=== PATIENT | female | born 1995 | race Hispanic/Latino ===

== ENCOUNTER 2018-10-25 10:34 | Emergency (ER) | payer SELFPAY ==
--- NOTE | 2018-10-25 11:42 | EDPHYS ---
Physician Documentation [facility] Name: Luisana Shoemaker Age: 23 yrs Sex: Female : 1995 Arrival Date: 10/25/2018 Time: 10:38 Bed 8 Private MD: ED Physician Hadley Mcdonald HPI: 10/25 11:41 This 23 yrs old Female presents to ER via Ambulatory with complaints of Breast pm1 Lump. 11:41 The patient or guardian reports chest pain that is located primarily in the right pm1 breast. Associated signs and symptoms: The patient has no apparent associated signs or symptoms. The patient has not experienced similar symptoms in the past. The patient has not recently seen a physician. Patient with right breast lump present for th past three months. Patient came for evaluation today because it has started to cause pain. No skin changes or nipple discharge. 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 - Social history:: Smoking status: Patient/guardian denies using tobacco. - Ebola Screening: : Patient negative for fever greater than or equal to 101.5 degrees Fahrenheit, and additional compatible Ebola Virus Disease symptoms Patient denies exposure to infectious person Patient denies travel to an Ebola-affected area in the 21 days before illness onset No symptoms or risks identified at this time. ROS: 11:41 Constitutional: Negative for fever, chills, and weight loss, Neck: Negative for injury, pm1 pain, and swelling, Respiratory: Negative for shortness of breath, cough, wheezing, and pleuritic chest pain, Abdomen/GI: Negative for abdominal pain, nausea, vomiting, diarrhea, and constipation, Back: Negative for injury and pain, : Negative for injury, bleeding, discharge, and swelling, MS/Extremity: Negative for injury and deformity. 11:41 Skin: Negative for injury, rash, and discoloration, Neuro: Negative for headache, weakness, numbness, tingling, and seizure. 11:41 Cardiovascular: Positive for right breast pain, Negative for edema, palpitations. Exam: 11:41 Constitutional: This is a well developed, well nourished patient who is awake, alert, pm1 and in no acute distress. Head/Face: Normocephalic, atraumatic. Neck: Trachea midline, no thyromegaly or masses palpated, and no cervical lymphadenopathy. Supple, full range of motion without nuchal rigidity, or vertebral point tenderness. No Meningismus. Cardiovascular: Regular rate and rhythm with a normal S1 and S2. No gallops, murmurs, or rubs. Normal PMI, no JVD. No pulse deficits. Respiratory: Lungs have equal breath sounds bilaterally, clear to auscultation and percussion. No rales, rhonchi or wheezes noted. No increased work of breathing, no retractions or nasal flaring. Abdomen/GI: Soft, non-tender, with normal bowel sounds. No distension or tympany. No guarding or rebound. No evidence of tenderness throughout. Back: No spinal tenderness. No costovertebral tenderness. Full range of motion. Skin: Warm, dry with normal turgor. Normal color with no rashes, no lesions, and no evidence of cellulitis. MS/ Extremity: Pulses equal, no cyanosis. Neurovascular intact. Full, normal range of motion. 11:41 Neuro: Orientation: is normal, Motor: is normal, moves all fours. 11:41 Chest/axilla: Breasts: cellulitis, is not appreciated, mass(es), approximately 2 cm x 2 pm1 cm, that is small, in the right breast, that is tender, that is freely movable, at 9 o'clock, nipple discharge, is not appreciated, rash, is not appreciated. 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 pm1 Vital Signs: 10:50 BP 117 / 76; Pulse 65; Resp 16; Temp 98.2; Pulse Ox 100% on R/A; Weight 63.5 kg; Height iw 5 ft. 4 in. (162.56 cm); Pain 6/10; 12:04 BP 110 / 68; Pulse 66; Resp 12; Pulse Ox 99% on R/A; Pain 3/10; sr5 10:50 Body Mass Index 24.03 (63.50 kg, 162.56 cm) iw MDM: 11:12 Patient medically screened. pm1 11:40 Data reviewed: vital signs. Data interpreted: Pulse oximetry: on room air is 100 %. pm1 Interpretation: normal. Counseling: I had a detailed discussion with the patient and/or guardian regarding: the historical points, exam findings, and any diagnostic results supporting the discharge/admit diagnosis, the need for outpatient follow up, for definitive care, an OB/Gyne specialist, to return to the emergency department if symptoms worsen or persist or if there are any questions or concerns that arise at home. Administered Medications: No medications were administered Disposition: 14:32 Co-signature as Attending Physician, Hadley Mcdonald MD. rn Disposition: 10/25/18 11:41 Discharged to Home. Impression: Unspecified lump in breast - right. - Condition is Stable. - Discharge Instructions: Breast Self-Awareness. - Work release form, Medication Reconciliation Form, Thank You Letter, Antibiotic Education, Prescription Opioid Use form. - Follow up: Emergency Department; When: As needed; Reason: Worsening of condition. Follow up: Private Physician; When: 2 - 3 days; Reason: Recheck today's complaints, Continuance of care, Re-evaluation by your physician. - Problem is new. - Symptoms have improved. Signatures: Libra Fofana RN Hadley Rivera MD MD rn Marinas, Patrick, GRETA MEDICINE ASSISTANT pm1 Resecker, Jim RN RN sr5 Corrections: (The following items were deleted from the chart) 12:03 11:41 10/25/2018 11:41 Discharged to Home. Impression: Unspecified lump in breast - sr5 right. Condition is Stable. Forms are Medication Reconciliation Form, Thank You Letter, Antibiotic Education, Prescription Opioid Use. Follow up: Emergency Department; When: As needed; Reason: Worsening of condition. Follow up: Private Physician; When: 2 - 3 days; Reason: Recheck today's complaints, Continuance of care, Re-evaluation by your physician. Problem is new. Symptoms have improved. pm1
--- NOTE | 2018-10-25 11:42 | ER ---
Nurse's Notes [facility] Name: Luisana Shoemaker Age: 23 yrs Sex: Female : 1995 Arrival Date: 10/25/2018 Time: 10:38 Bed 8 Private MD: Diagnosis: Unspecified lump in breast-right Presentation: 10/25 10:48 Presenting complaint: Patient states: felt a lump in right breast X 3 months, pain and iw tenderness to area X 1 month. Transition of care: patient was not received from another setting of care. Onset of symptoms was July 2018. Risk Assessment: Do you want to hurt yourself or someone else? Patient reports no desire to harm self or others. Initial Sepsis Screen: Does the patient meet any 2 criteria? No. Patient's initial sepsis screen is negative. Does the patient have a suspected source of infection? No. Patient's initial sepsis screen is negative. Care prior to arrival: None. 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 - Social history:: Smoking status: Patient/guardian denies using tobacco. - Ebola Screening: : Patient negative for fever greater than or equal to 101.5 degrees Fahrenheit, and additional compatible Ebola Virus Disease symptoms Patient denies exposure to infectious person Patient denies travel to an Ebola-affected area in the 21 days before illness onset No symptoms or risks identified at this time. Screenin:04 Abuse screen: Denies threats or abuse. Nutritional screening: No deficits noted. sr5 Tuberculosis screening: No symptoms or risk factors identified. Fall Risk None identified. Assessment: 11:00 General: Appears comfortable, Behavior is calm, cooperative. Pain: Complains of pain in aa5 right breast Pain radiates to right axillae Pain currently is 6 out of 10 on a pain scale. Quality of pain is described as "sore and tender" Pain began 3 months Is continuous. Neuro: Level of Consciousness is awake, alert, obeys commands, Oriented to person, place, time, situation. Cardiovascular: Heart tones S1 S2 present Rhythm is regular. Respiratory: Airway is patent Respiratory effort is even, unlabored, Respiratory pattern is regular, symmetrical. GI: No signs and/or symptoms were reported involving the gastrointestinal system. : No signs and/or symptoms were reported regarding the genitourinary system. EENT: No signs and/or symptoms were reported regarding the EENT system. Derm: Skin is pink, warm \\T\\ dry. Pt reports lump from right breast, no redness noted to right breast. Musculoskeletal: Range of motion: intact in all extremities. 12:04 Reassessment: Upon discharge, pt fully AA\\T\\Ox4, equal unlabored resp, room air, skin sr5 warm/dry/nc, sitting upright on the side of the bed. Reports intermintent pain at "breast lump" site, reports "feels like a bruise". Pt and visitor acknowledge understanding of DC instructions, steady gait out of ER, no prescriptions. Vital Signs: 10:50 BP 117 / 76; Pulse 65; Resp 16; Temp 98.2; Pulse Ox 100% on R/A; Weight 63.5 kg; Height iw 5 ft. 4 in. (162.56 cm); Pain 6/10; 12:04 BP 110 / 68; Pulse 66; Resp 12; Pulse Ox 99% on R/A; Pain 3/10; sr5 10:50 Body Mass Index 24.03 (63.50 kg, 162.56 cm) iw ED Course: 10:38 Patient arrived in ED. mr 10:46 Sergio Alejandre NP is PHCP. pm1 10:46 Hadley Mcdonald MD is Attending Physician. pm1 10:49 Triage completed. iw 10:50 Arm band placed on. iw 10:51 Tomer Goncalves, RN is Primary Nurse. bp 11:00 Primary Nurse role handed off by Tomer Goncalves, TERRY aa5 11:00 Elas Schmitt, TERRY is Primary Nurse. aa5 12:04 Patient has correct armband on for positive identification. Bed in low position. Call sr5 light in reach. Pulse ox on. NIBP on. 12:04 No provider procedures requiring assistance completed. Patient did not have IV access sr5 during this emergency room visit. Patient maintains SpO2 saturation greater than 95% on room air. Administered Medications: No medications were administered Outcome: 11:41 Discharge ordered by MD. pm1 12:03 Patient left the ED. sr5 12:04 Discharged to home ambulatory, with significant other. sr5 12:04 Condition: good 12:04 Discharge instructions given to patient, significant other, Instructed on discharge instructions, follow up and referral plans. medication usage, Demonstrated understanding of instructions, follow-up care, medications. Signatures: Luisana Multani mr Libra Fofana RN RN iw Elsa Schmitt RN RN aa5 Sergio Alejandre, CHEESE PRODUCTION SUPERVISOR CHEESE PRODUCTION SUPERVISOR pm1 Jim Ng RN RN sr5 Tomer Goncalves RN RN bp
== END 2018-10-25 12:03 | disposition home or self-care (01) ==
LOC: ER 10:34
DX: N63.10 Unspecified lump in the right breast, unspecified quadrant (principal)
CPT/HCPCS: 99284